=== PATIENT | male | born 1965 | race Two or more races ===

== ENCOUNTER 2018-05-25 10:17 | Outpatient (CLI) | payer OTHER | END 2018-05-25 10:38 | disposition home or self-care (01) | LOC: MRI 10:17 | DX: M33.19 Other dermatomyositis with other organ involvement (principal) | CPT/HCPCS: 73719 ==

== ENCOUNTER → 2021-03-31 | Outpatient (CLI) | payer OTHER | END | disposition home or self-care (01) | LOC: RAD 10:37 → MAMO-SONO 10:45 | PROVIDERS: ATTEND Internal Medicine Rheumatology | DX: S66.10 Unspecified injury of flexor muscle, fascia and tendon of other and unspecified finger at wrist and hand level (principal); M33.20 Polymyositis, organ involvement unspecified | CPT/HCPCS: 73720 ==

== ENCOUNTER 2024-01-22 13:23 | Outpatient (CLI) | payer OTHER | END 2024-01-22 13:24 | disposition home or self-care (01) | LOC: NUCLEAR 13:23 | PROVIDERS: ATTEND Internal Medicine Rheumatology | DX: M81.0 Age-related osteoporosis without current pathological fracture (principal) ==